=== PATIENT | male | born 1980 | race African-American/Black ===

== ENCOUNTER 2017-08-15 20:06 | Emergency (ER) | payer OTHER ==
[~2017-08-15] VITALS: Ht 185.4 cm; Wt 113.4 kg
[2017-08-15] MEDS ORDERED: IPRATROPIUM BROM 0.5 MG/2.5ML INH SOL NEB ONE (20:30)
[2017-08-15] MEDS ORDERED: ALBUTEROL SULF 2.5 MG/0.5ML(0.5%) NEB SOLN NEB ONE (20:30)
[2017-08-15 20:59] VITALS: BP 115/70
[2017-08-15] MEDS ORDERED: methylPREDNISolone SOD SUCC 125 MG/2 ML VL IM ONE (21:15)
== END 2017-08-15 23:37 | disposition home or self-care (01) ==
LOC: ER 20:06
DX: J45.901 Unspecified asthma with (acute) exacerbation (principal)
CPT/HCPCS: 71020; 94640; 96372; 99284; J2930

== ENCOUNTER 2018-05-21 16:47 | Emergency (ER) | payer OTHER ==
[~2018-05-21] VITALS: Ht 185.4 cm; Wt 113.4 kg
[2018-05-21 16:54] VITALS: BP 118/74
== END 2018-05-21 17:30 | disposition home or self-care (01) ==
LOC: ER 16:47
DX: J45.909 Unspecified asthma, uncomplicated (principal); Z76.0 Encounter for issue of repeat prescription
CPT/HCPCS: 71046